=== PATIENT | female | born 1960 | race Caucasian/White ===

== ENCOUNTER 2016-11-25 08:07 | Emergency (ER) | payer MEDICARE, BC ==
--- OUTSIDE RECORDS SUMMARY | 2016-11-25 08:10 | XMS | Clinical Summary ---
:1960 Author Organization [facility] Address [address] [place] [address] Phone Care Team Providers Name Role Phone Dada Lai Primary Care Provider tel Allergies Active Allergy Reactions Severity Noted Date Comments Pfjddkso-Zqjzraadcb-Eqjhhqao High 03/31/2016 ne Meperidine 03/27/2016 Doxycycline GI Intolerance 03/27/2016 Nalbuphine 03/27/2016 Other 03/27/2016 Per pt, she has severe reaction to throat numbing spray Promethazine GI Intolerance 03/27/2016 Butorphanol Tartrate 03/27/2016 Aminophylline Rash Low 03/27/2016 Cefixime Rash Low 03/27/2016 Theophylline Rash Low 03/27/2016 Current Medications Prescription Sig. Disp. Refills Start Date End Date Status EPIPEN 2-JESUS 0.3 mg/0.3 03/13/2016 Active mL auto-injector estradiol (ESTRACE) 2 MG TAKE ONE (1) 3 02/27/2016 Active tablet TABLET(S) BY MOUTH ONCE A DAY. fluconazole (DIFLUCAN) TAKE ONE (1) 2 03/12/2016 Active 150 MG tablet TABLET(S) BY MOUTH WEEKLY. PERFOROMIST 20 mcg/2 mL 03/14/2016 Active nebulizer solution ANUCORT-HC 25 mg 03/13/2016 Active suppository predniSONE (DELTASONE) 5 01/19/2016 Active mg tablet budesonide (PULMICORT) Take 0.5 mg by Active 0.5 mg/2 mL nebulizer nebulization once solution daily. amoxicillin (AMOXIL) 500 Take 500 mg by Active MG capsule mouth as needed. mycophenolate (CELLCEPT) Take by mouth 2 Active 500 mg tablet (two) times a day. rosuvastatin (CRESTOR) 20 Take 20 mg by mouth Active MG tablet daily. fluticasone-vilanterol Inhale 1 Active (BREO ELLIPTA) 100-25 inhalations daily. mcg/dose blister with device powder for inhalation furosemide (LASIX) 20 mg Take 20 mg by mouth Active tablet 2 (two) times a day. spironolactone Take 25 mg by mouth Active (ALDACTONE) 25 MG tablet daily. nitroglycerin (NITROSTAT) Place 0.4 mg under Active 0.4 MG SL tablet the tongue every 5 (five) minutes as needed for chest pain. hydrocortisone Insert into the Active (ANUSOL-HC) 2.5 % rectal rectum 2 (two) cream times a day. azithromycin (ZITHROMAX) Take 250 mg by Active 250 MG tablet mouth daily. Take 2 tablets the first day, then 1 tablet daily for 4 days. ibandronate (BONIVA) 150 Take 150 mg by Active mg tablet mouth every 30 (thirty) days. Take in AM with glass of water prior to food, don't lie down for 30 minutes. levalbuterol (XOPENEX) Take 1 ampule by Active 1.25 mg/0.5 mL nebulizer nebulization every solution 4 (four) hours as needed for wheezing. coenzyme Q10 (CO Q-10) Take 300 mg by Active 100 mg capsule mouth daily. ondansetron (ZOFRAN) 8 MG Take 8 mg by mouth Active tablet every 8 (eight) hours as needed for nausea or vomiting. methylPREDNISolone sodium Infuse 125 mg into Active succinate (SOLU-Medrol, a venous catheter PF,) 125 mg/2 mL recon once. soln albuterol (PROAIR Inhale 2 puffs Active HFA,PROVENTIL every 6 (six) hours HFA,VENTOLIN HFA) 90 as needed for mcg/actuation inhaler wheezing. mometasone (NASONEX) 50 2 sprays into each Active mcg/actuation nasal spray nostril daily. potassium chloride Take 8 mEq by mouth Active (KLOR-CON 8) 8 MEQ CR 2 (two) times a tablet day. mupirocin (BACTROBAN) 2 % into each nostril 2 Active nasal ointment (two) times a day. Use one-half of tube in each nostril twice daily for five (5) days. After application, press sides of nose together and gently massage. butenafine (MENTAX) 1 % Apply topically 2 Active cream (two) times a day. aspirin (ECOTRIN) 81 MG Take 81 mg by mouth Active enteric coated tablet daily. albuterol sulfate Take 2.5 mg by Active (PROVENTIL) 2.5 mg/0.5 mL nebulization 3 solution for nebulization (three) times a day. cholecalciferol, vitamin Take by mouth. Active D3, (VITAMIN D3) 5,000 unit tablet MECOBAL/LEVOMEFOLAT CA/B6 Take by mouth. Active PHOS (METANX ORAL) morPHINE (MS CONTIN) 15 Take 15 mg by mouth Active MG 12 hr tablet 2 (two) times a day. gabapentin (NEURONTIN) Take 300 mg by Active 300 mg capsule mouth 3 (three) times a day. lidocaine (XYLOCAINE) 5 % Apply topically as Active ointment needed for mild pain. dexlansoprazole Take 60 mg by mouth Active (DEXILANT) 60 mg capsule daily. pantoprazole (PROTONIX) Take 40 mg by mouth Active 40 MG EC tablet daily. hydromorPHONE (DILAUDID) Take 4 mg by mouth Active 4 MG tablet every 4 (four) hours as needed for moderate pain. hydroxychloroquine Take by mouth Active (PLAQUENIL) 200 mg tablet daily. albuterol (ACCUNEB) 2.5 10/23/2016 Active mg /3 mL (0.083 %) nebulizer solution fluticasone (CUTIVATE) 10/24/2016 Active 0.05 % cream BREO ELLIPTA 200-25 10/23/2016 Active mcg/dose blister with device powder for inhalation ULTRA THIN LANCETS 30 09/29/2016 Active gauge misc levalbuterol (XOPENEX) 09/25/2016 Active 1.25 mg/3 mL nebulizer solution AMITIZA 24 mcg capsule 10/24/2016 Active methylPREDNISolone TAKE 6 TABLETS ON 0 10/23/2016 Active (MEDROL DOSEPAK) 4 mg DAY 1 DIRECTED tablet ON PACKAGE AND DECREASE BY 1 TAB EACH DAY FOR A TOTAL OF 6 DAYS mupirocin (BACTROBAN) 2 % 10/23/2016 Active ointment nxxgoeki-kciuohapag-subrt 10/23/2016 Active yxin (POLYSPORIN) ophthalmic ointment orphenadrine (NORFLEX) 10/23/2016 Active 100 mg 12 hr tablet potassium chloride 09/24/2016 Active (MICRO-K) 8 mEq CR capsule terconazole (TERAZOL 3) 10/28/2016 Active 0.8 % vaginal cream FORTEO 20 mcg/dose - 600 10/31/2016 Active mcg/2.4 mL injection valACYclovir (VALTREX) TAKE ONE (1) 6 09/24/2016 Active 500 MG tablet TABLET(S) BY MOUTH ONCE A DAY. Active Problems No known active problems Encounters Date Type Specialty Care Team Description 11/20/2016 Office Visit Orthopedic Surgery Kota Louie DDD ( degenerative Darinyessica Sneed, disc disease), PA-C lumbar (Primary Juan Manuel Benjamin MD Dx);DDD (degenerative disc disease), cervical;Cervical pain;Chronic low back pain without sciatica, unspecified back pain laterality 09/09/2016 Hospital Encounter Radiology Migue Harmon respiratory MD Danny failure with hypoxia 09/09/2016 Transcribe Orders Migue Guadalupe Bronchospasm;Polymyo MD Danny sitis 09/02/2016 Transcribe Orders Migue Guadalupe Chronic respiratory MD Danny failure with hypoxia (Primary Dx) from Last 3 Months Family History Medical History Relation Name Comments Diabetes Brother Hypertension Brother Heart disease Father Diabetes Mother Heart disease Mother Stroke Mother Sudden Mother Hypertension Sister Hypertension Sister Stroke Sister Mitral valve prolapse Sister Mitral valve replacement Sudden Sister Relation Name Status Comments Brother Father Mother Sister Sister Sister Social History Tobacco Use Types Packs/Day Years Used Date Never Smoker Smokeless Tobacco: Never Used Alcohol Use Drinks/Week oz/Week Comments No Sex Assigned at Date Recorded Not on file Last Filed Vital Signs Vital Sign Reading Time Taken Blood Pressure 136/72 06/24/2016 10:29 AM CDT Pulse 85 06/24/2016 10:29 AM CDT Temperature - - Respiratory Rate - - Oxygen Saturation 98% 06/07/2016 1:17 PM CDT Inhaled Oxygen Concentration - - Weight 99.8 kg (220 lb) 06/07/2016 1:17 PM CDT Height 162.6 cm (5' 4") 06/07/2016 1:17 PM CDT Body Mass Index 37.76 06/07/2016 1:17 PM CDT Plan of Treatment Date Type Specialty Care Team Description 12/20/2016 Office Visit Cardiology Kiersten Castellon MD [address] [facility] [address] [place] [address] Health Maintenance Due Date Last Done Comments PAP SMEAR 1981 COLONOSCOPY 2010 MAMMOGRAM 2010 INFLUENZA VACCINE 10/01/[address] Chest Wo Contrast (09/09/2016 11:21 AM) Specimen Performing Laboratory [facility] [address] [place] [address] Narrative EXAMINATION: CT CHEST WO CONTRAST CLINICAL HISTORY: J96.11 Chronic respiratory failure with hypoxia, CHRONIC RESPRATORY FAILURE WITH HYPOXIA TECHNIQUE: Multiple axial images of the chest were obtained without intravenous contrast. The lack of intravenous contrast reduces the sensitivity of detecting solid organ disease and evaluating vasculature. Sagittal and coronal computerized reformatted images were also obtained. CT imaging was performed with iterative reconstruction techniques and/or automated exposure control to reduce radiation dose. COMPARISON: Chest CT 12/08/2015 IMPRESSION: 1.The 13 mm irregular nodular area in the inferior lingula is stable, again most likely scarring, and continued imaging follow-up to ensure long-term (at least 2 years) stability is recommended. Lungs are otherwise clear. 2.There is no pleural or pericardial effusion. 3.There is no thoracic lymphadenopathy. 4.Heart size is normal. 5.Imaged upper abdomen is unremarkable. 6.There is no significant skeletal abnormality. [id number] Procedure Note Hm Interface, Radiology Results Incoming - 09/09/2016 11:43 AM CDT EXAMINATION: CT CHEST WO CONTRAST CLINICAL HISTORY: J96.11 Chronic respiratory failure with hypoxia, CHRONIC RESPRATORYFAILURE WITH HYPOXIA TECHNIQUE: Multiple axial images of the chest were obtained without intravenouscontrast. The lack of intravenous contrast reduces the sensitivity ofdetecting solid organ disease and evaluating vasculature. Sagittal and coronal computerized reformatted images were also obtained. CT imaging was performed with iterative reconstruction techniques and/ orautomated exposure control to reduce radiation dose. COMPARISON: Chest CT 12/08/2015 IMPRESSION: 1. The 13 mm irregular nodular area in the inferior lingula is stable,again most likely scarring, and continued imaging follow-up to ensurelong-term (at least 2 years) stability is recommended. Lungs are otherwiseclear. 2. There is no pleural or pericardial effusion. 3. There is no thoracic lymphadenopathy. 4. Heart size is normal. 5. Imaged upper abdomen is unremarkable. 6. There is no significant skeletal abnormality. [id number] from Last 3 Months Insurance Payer Benefit Plan / Group Subscriber ID Type Phone Address MEDICARE MEDICARE PART A AND B [id number] Medicare [place], [place] BCBS BCBS CHOICE PPO/FEDERAL EMPL PPO [id number] PPO Home: [id number] [phone] [id number]
--- NOTE | 2016-11-25 08:30 | RAD ---
CHEST 1 VIEW: Date: 11/25/16 HISTORY: Dyspnea. COMPARISON: 11/02/15. FINDINGS: Cardiac silhouette is magnified by projection. Pulmonary vasculature is unremarkable. Mediastinum is midline. There is no lobar consolidation or evidence of pneumothorax. pvc monitor leads overlie the chest. IMPRESSION: No active cardiopulmonary abnormalities are demonstrated. POS: [facility]
[2016-11-25 08:49] LABS: #Basophils 0.1 thou/uL (0.0-0.2); #Eosinphils 0.2 thou/uL (0.0-0.7); #Lymphocytes 2.8 thou/uL (1.20-3.40); #Monocytes 0.4 thou/uL (0.11-0.59); #Neutrophils 3.5 thou/uL (1.40-6.50); %Basophils 0.8 % (0.0-1.0); %Eosinophils 2.3 % (0.0-10.0); %Lymphocytes 40.2 % (21.0-51.0); %Monocytes 6.3 % (0.0-10.0); Hematocrit 45.1 % (36.0-47.0); Mean Platelet Volume 7.1 fL (7.4-10.4); Red Blood Cell (RBC) Count 4.96 mill/uL (4.20-5.40); White Blood Cell (WBC) Count 6.9 thou/uL (4.8-10.8)
[2016-11-25 09:14] LABS: ALT (SGPT) 18 U/L (8-55); AST (SGOT) 20 U/L (5-34); Alkaline Phosphatase 76 U/L (40-150); Anion Gap 16 mmol/L (10-20); BUN (Urea Nitrogen) 17 mg/dL (9.8-20.1); Bilirubin, Total 0.4 mg/dL (0.2-1.2); Calc. Creatinine Clearance 0 mL/min (70-130); Calcium 9.6 mg/dL (7.8-10.44); Carbon Dioxide 24 mmol/L (22-29); Chloride 105 mmol/L (98-107); Estimated GFR-MDRD 66; Globulin 3.3 g/dL (2.4-3.5); Protein, Total 7.3 g/dL (6.0-8.3)
[2016-11-25 09:18] LABS: Troponin I Less than 0.010 ng/mL (< 0.028)
[2016-11-25] MEDS ORDERED: Water For Inject, Bacteriostat 30 ML ONE (09:40)
[2016-11-25] MEDS ORDERED: methylPREDNISolone Sod Succ/PF 125 MG/2 ML VIAL ONE (09:40)
== END 2016-11-25 11:43 | disposition home or self-care (01) ==
LOC: ERS 08:07
DX: J44.1 Chronic obstructive pulmonary disease with (acute) exacerbation (principal); J40 Bronchitis, not specified as acute or chronic; I34.1 Nonrheumatic mitral (valve) prolapse; M06.9 Rheumatoid arthritis, unspecified; K21.9 Gastro-esophageal reflux disease without esophagitis; G47.31 Primary central sleep apnea; G89.4 Chronic pain syndrome; I50.9 Heart failure, unspecified
CPT/HCPCS: 36415; 71010; 80053; 82553; 83880; 84484; 85025; 85379; 93005; 94640; 94760; 96374; J2930; J7620

== ENCOUNTER 2017-03-04 14:52 | Inpatient (IN) | payer MEDICARE, BC ==
[2017-03-04] MEDS ORDERED: Acetaminophen 500 MG TAB ONE (19:51)
[2017-03-04 20:02] LABS: #Basophils 0.1 thou/uL (0.0-0.2); #Lymphocytes 0.9 thou/uL (1.20-3.40); #Monocytes 0.7 thou/uL (0.11-0.59); #Neutrophils 3.2 thou/uL (1.40-6.50); %Basophils 1.4 % (0.0-1.0); %Eosinophils 0.5 % (0.0-10.0); %Lymphocytes 18.9 % (21.0-51.0); %Monocytes 13.2 % (0.0-10.0); Hemoglobin 14.6 g/dL (12.0-16.0); Mean Corpuscular HGB CONC 32.7 g/dL (32.0-36.0); Mean Corpuscular Hemoglobin 30.3 pg (27.0-31.0); Mean Corpuscular Volume 92.6 fl (81.0-99.0); Mean Platelet Volume 7.8 fL (7.4-10.4); Platelet Count 197 thou/uL (130-400); RBC Distribution Width 13.7 % (11.5-14.5); Red Blood Cell (RBC) Count 4.83 mill/uL (4.20-5.40); White Blood Cell (WBC) Count 4.9 thou/uL (4.8-10.8)
[2017-03-04 20:23] LABS: ALT (SGPT) 24 U/L (8-55); AST (SGOT) 26 U/L (5-34); Albumin 4.4 g/dL (3.5-5.0); Alkaline Phosphatase 78 U/L (40-150); Anion Gap 16 mmol/L (10-20); BUN (Urea Nitrogen) 15 mg/dL (9.8-20.1); Bilirubin, Total 0.5 mg/dL (0.2-1.2); Calc. Creatinine Clearance 0 mL/min (70-130); Calcium 9.7 mg/dL (7.8-10.44); Carbon Dioxide 21 mmol/L (22-29); Chloride 107 mmol/L (98-107); Estimated GFR-MDRD 72; Globulin 3.4 g/dL (2.4-3.5); Glucose 82 mg/dL (70-105); Potassium 3.7 mmol/L (3.5-5.1); Protein, Total 7.8 g/dL (6.0-8.3); Sodium 140 mmol/L (136-145)
--- NOTE | 2017-03-04 20:46 | RAD ---
EXAM: CHEST TWO VIEWS 03/04/17 HISTORY: Cough. Flu-like symptoms. COMPARISON: 10/11/16. FINDINGS: Lung volumes are diminished. No consolidation or mass. No pneumothorax or osseous abnormalities. Card iac silhouette is within normal limits. IMPRESSION: Diminished lung volumes, likely due to a poor inspiratory effort. No acute cardiopulmonary process. POS: [facility]
[2017-03-04] MEDS ORDERED: Azithromycin 500 MG in Sodium Chloride 0.9% 250 ML 250 ML IVPB SCH (22:00)
[2017-03-04] MEDS ORDERED: Ondansetron ODT 4 MG TAB SL PRN (23:35)
[2017-03-04] MEDS: Sodium Chloride 0.9% 1,000 ML IV SCH (23:35)
[2017-03-04] MEDS ORDERED: Ondansetron HCl/PF 4 MG/2 ML Vial IVP PRN (23:35)
[2017-03-04] MEDS ORDERED: Acetaminophen 325 MG TAB PO PRN (23:35)
[2017-03-04 23:58] VITALS: BMI 38.0
[2017-03-05] MEDS: Sodium Chloride 0.9% 1,000 ML IV SCH (06:28)
[2017-03-05] MEDS ORDERED: Budesonide 0.5 MG/2 ML NEB NEB SCH (06:30)
[2017-03-05] MEDS ORDERED: Morphine IR 10 MG/5 ML UDCUP PO PRN ×2 (07:19→11:30)
--- NOTE | 2017-03-05 07:21 | HP ---
DATE OF ADMISSION: 03/04/2017 CHIEF COMPLAINT: Flu-like syndrome. HISTORY OF PRESENT ILLNESS: The patient is a 56-year-old female with longstanding restrictive lung d isease. This slowly progressed over many years. Over the last 3 days she has had increasing cough, congestion, fever, chills and fatigue. She came to the emergency room on the day of admission for fu rther evaluation. There she was noted to have diminished breath sounds in all lung montilla (this is h er baseline). However, due to her respiratory difficulties in general with the added congestion and fatigue it is felt that due to her immunocompromised state of being on steroid therapy for her lupus she needed hospitalization for further evaluation and serial reassessment. There has been no nausea, vomiting, diarrhea. She denies chest pain, numbness, tingling. Her symptoms are generalized, moder ate in severity, but have been worsening, associated with cough. On evaluation, she is coughing cons tantly. PAST MEDICAL HISTORY: As mentioned above, long history of restrictive lung disease which has slowly progressed. 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 She has chronic pain due to bilateral avascular necrosis of the hips also due to long-term steroid therapy. She has chronic back pain with MRI proven neuronal comp romise due to bulging disk and foraminal stenosis. She has mild mitral valve prolapse, collagen vasc ular disease - lupus, rheumatoid arthritis, pyomyositis, gastroesophageal reflux disease, polyps, ova abbie cyst, endometriosis, prior hysterectomy, carpal tunnel syndrome, osteoporosis, torn rotator cuff in her shoulders. Dyslipidemia. Medication induced constipation/irritable bowel syndrome. PAST SURGICAL HISTORY: Hysterectomy, appendectomy, laparotomy x2, tonsillectomy. PSYCHIATRIC HISTORY: Significant for anxiety disorder. SOCIAL HISTORY: She is , denies drug and alcohol use. She lives at home with her . FAMILY HISTORY: Noncontributory. ALLERGIES: AMINOPHYLLINE, CEFEPIME, DEMEROL, DOXYCYCLINE, NUBAIN, PROMETHAZINE, STADOL. CURRENT MEDICATIONS: Prednisone 20 mg, she takes 4-8 mg daily, Forteo 20 mcg daily, Xopenex daily, C ellCept 250 mg b.i.d., Dexilant 60 mg daily, spironolactone 25 mg daily, many over the counter medici latha p.r.n. such, Dulcolax, Anusol-HC, Nasonex, Mentax, she takes morphine 15 mg every 8 hours p.r.n. back and hip pain. She takes Amitiza 8 mg p.r.n. irritable bowel syndrome, she takes Perforomist neb treatments 20 mcg b.i.d., Pulmicort 0.5 mg b.i.d., Estradiol 2 mg daily, Flexeril 10 mg p.r.n. muscl e spasms in her back, Diflucan p.r.n. yeast infection, Lasix 20 mg b.i.d., Crestor 20 mg at bedtime. REVIEW OF SYSTEMS: HEENT: Head congestion, drainage and discharge. NECK: Denies pain. Normal range of motion. No masses. CHEST: With chronic shortness of breath and cough, nonproductive. HEART: Denies chest pain and palpitations at this time. ABDOMEN: Soft, denies nausea, vomiting, diarrhea. : Denies blood in urine or stool or painful urination. GI: Admits to chronic constipation usually due to pain medications. Denies blood in stool. MUSCULOSKELETAL: Diffuse chronic aches and pains in all major joints due to avascular necrosis in th e major joints with limited range of motion. SKIN: No acute rashes or lesions. NEUROLOGIC: No trouble with mentation, focus, dizziness or headache. PHYSICAL EXAMINATION: VITAL SIGNS: On admission, blood pressure is 104/54, pulse is 96, temperature 99.9, respirations 24. GENERAL: This is a morbidly obese female, alert, oriented, and cooperative. HEENT: Normocephalic and atraumatic. Pupils equal, round, and reactive to light. Extraocular muscl es are intact. TMs, nares, pharynx are clear. No white patches such as thrush. NECK: Supple, trachea midline, no mass. CHEST: With diminished breath sounds in all montilla (baseline findings for this patient). No rales, rhonchi, occasional wheezes diffusely. HEART: Regular rate and rhythm, tachycardic. ABDOMEN: Soft, nontender, without organomegaly. /BREAST: Exams deferred. ABDOMEN: Soft, nontender, without hepatosplenomegaly. EXTREMITIES: Without clubbing, cyanosis, or edema. Limited range of motion of all extremities due t o core avascular necrosis at the shoulders and hips. SKIN: Without acute rashes or lesions. Warm to touch. NEUROLOGIC: Cranial nerves are intact. Unable to test gait and cerebellar function at this time. S ensory exam is generally intact. Mental status is clear. LABORATORY DATA: Lab work on admission showed WBC is 4.9, hemoglobin 14.6, hematocrit 44.7 with plat elets at 197. Sodium 140, potassium 3.7, chloride 107, CO2 21, BUN 15, creatinine 2.82 with a glucos e of 82. Lactic acid 1.9. Liver functions normal. Chest x-ray shows no acute disease. ASSESSMENT: 1. Viral syndrome in an immunocompromised individual. 2. Immunocompromised due to chronic steroid therapy for lupus and polymyositis. 3. Chronic pain syndromes due to avascular necrosis and diffuse major joint deterioration. 4. "Shrinking lung disease". PLAN: Scheduled Tylenol, scheduled DuoNeb treatments, maintain her low level prednisone 10 mg daily use, maintain low level morphine p.r.n. use and serially reevaluate the patient. Early possible disc harge once her respiratory difficulties ease off.
[2017-03-05 07:34] LABS: #Eosinphils 0.1 thou/uL (0.0-0.7); #Lymphocytes 0.7 thou/uL (1.20-3.40); #Monocytes 0.6 thou/uL (0.11-0.59); #Neutrophils 2.6 thou/uL (1.40-6.50); %Basophils 0.9 % (0.0-1.0); %Eosinophils 1.9 % (0.0-10.0); %Lymphocytes 16.7 % (21.0-51.0); %Monocytes 14.6 % (0.0-10.0); %Neutrophils 65.8 % (42.0-75.0); Hemoglobin 12.2 g/dL (12.0-16.0); Mean Corpuscular HGB CONC 32.7 g/dL (32.0-36.0); Mean Corpuscular Hemoglobin 30.2 pg (27.0-31.0); Mean Corpuscular Volume 92.5 fl (81.0-99.0); Mean Platelet Volume 7.5 fL (7.4-10.4); Platelet Count 159 thou/uL (130-400); RBC Distribution Width 13.6 % (11.5-14.5); Red Blood Cell (RBC) Count 4.04 mill/uL (4.20-5.40)
[2017-03-05 07:41] LABS: Hemoglobin A1c 5.1 % (4.0-6.0)
[2017-03-05 07:43] LABS: Anion Gap 13 mmol/L (10-20); BUN (Urea Nitrogen) 12 mg/dL (9.8-20.1); Calc. Creatinine Clearance 133 mL/min (70-130); Calcium 8.9 mg/dL (7.8-10.44); Carbon Dioxide 20 mmol/L (22-29); Chloride 109 mmol/L (98-107); Estimated GFR-MDRD 80; Glucose 117 mg/dL (70-105); Potassium 3.8 mmol/L (3.5-5.1); Sodium 138 mmol/L (136-145)
[2017-03-05] MEDS ORDERED: Spironolactone 25 MG TAB PO SCH (08:00)
[2017-03-05] MEDS ORDERED: Mycophenolate 250 MG CAP PO SCH (09:00)
[2017-03-05] MEDS ORDERED: Acetaminophen 325 MG TAB PO SCH (09:00)
[2017-03-05] MEDS ORDERED: predniSONE 5 MG TAB PO SCH (09:00)
--- NOTE | 2017-03-05 13:03 | PQF ---
CLINICAL DOCUMENTATION IMPROVEMENT CLARIFICATION FORM: ICD-10 Updated PLEASE DO AN ADDENDUM TO THE PROGRESS NOTE WITH ANY DOCUMENTATION UPDATES OR ADDITIONS AND CARRY THROUGH TO DC SUMMARY. THANK YOU. DATE: 03/05/17 ATTN: DR. HODGE Please exercise your independent, professional judgment in responding to the clarification form. Clinical indicators are provided on the bottom of this form for your review Please check appropriate box(s): [ ] Acute Respiratory Failure: [ ] with Hypoxia[ ] with Hypercapnia [x ] Acute On Chronic Respiratory Failure: [ x ] with Hypoxia [ ] with Hypercapnia [ ] Acute Respiratory Failure due to: (etiology) [ ] Acute Respiratory Insufficiency following (if applicable): [ ] trauma [ ] surgery [ ] Chronic Respiratory Failure only [ ] with Hypoxia [ ] with Hypercapnia [ ] Hypoxia [ x ] Other diagnosis "Shrinking Lung syndrome" [ ] Unable to determine In addition, please specify: Present on Admission (POA): [ ] Yes [ ] No [ ] Unable to determine For continuity of documentation, please document condition throughout progress notes and discharge summary. Thank You. CLINICAL INDICATORS - SIGNS / SYMPTOMS / LABS ER NOTE: "ON HOME O2 @ 3-4 LPM" "WHEEZING PRESENT TO BILATERAL UPPER LOBES, TO BILATERAL LOWER LOBES, BREATH SOUNDS DIMINISHED TO BILATERAL UPPER LOBES, TO BILATERAL LOWER LOBES." "ON MY EXAM, VERY TIGHT BILATERAL BREATH SOUNDS WITH EXPIRATORY WHEEZE AND PROLONGED EXPIRATORY PHASE" RR24 RISKS: "SHRINKING LUNG SYNDROME" IMMUNOCOMPROMISED STATE TREATMENT: CARLEEN (03/04-PRESENT) PULMICORT PREDNISONE SUPPLEMENTAL OXYGEN @ 4L [employer] Win[employer](This form is maintained as a part of the permanent medical record) 2014 [employer]. All Rights Reserved SANDRA [email or web address] Office: [phone] [facility]
[2017-03-05] MEDS: Acetaminophen 325 MG TAB PO SCH ×3 (14:05→19:49)
[2017-03-05] MEDS: Budesonide 0.5 MG/2 ML NEB NEB SCH (19:44)
[2017-03-05] MEDS: Mycophenolate 250 MG CAP PO SCH ×2 (19:50→19:58)
[2017-03-06] MEDS: Acetaminophen 325 MG TAB PO SCH ×6 (00:47→20:04)
[2017-03-06] MEDS: Budesonide 0.5 MG/2 ML NEB NEB SCH ×2 (06:42→19:08)
[2017-03-06] MEDS: Spironolactone 25 MG TAB PO SCH (07:53)
[2017-03-06] MEDS: predniSONE 20 MG TAB PO SCH (07:53)
[2017-03-06] MEDS: Mycophenolate 250 MG CAP PO SCH ×2 (07:58→20:05)
--- NOTE | 2017-03-06 08:21 | PRG ---
DATE OF SERVICE: 03/06/2017 SUBJECTIVE: The patient had a good night. She is still short of breath. She is coughing up yellow and green sputum despite her chest x-ray being unremarkable. PHYSICAL EXAMINATION: GENERAL: Upon evaluation, she is awake, alert, and oriented. VITAL SIGNS: Her blood pressure is 113/70, temperature was 100.2. NECK: Supple with no increased JVP or carotid bruit. Carotid had good upstroke with no thyromegaly . COR: Regular rate and rhythm. CHEST: Scattered rhonchi. ABDOMEN: Soft, nontender, obese with normoactive bowel sounds. No bruit or organomegaly. EXTREMITIES: No edema or cyanosis. She had palpable pedal pulses. SKIN: There is no evidence of ulceration, lesion or rash. NEUROLOGIC: She is awake, alert, and oriented to person, place, and time. LABORATORY DATA: Her white blood cell is 4.0. Her H&H is normal. ASSESSMENT: 1. Bronchitis. 2. Restrictive lung disease. 3. Lupus, on steroids. 4. Multiple medical problems. PLAN: We will go ahead and start Rocephin and Zithromax secondary to coughing up yellow and green sp utum and running a fever. We will also follow up with a chest x-ray in the morning. We will also en courage her to get out of bed and sit in the chair. The patient verbalized understanding and all que stions answered to her satisfaction.
[2017-03-06] MEDS: cefTRIAXone\\ROCEPHIN 1 GM, Syringe 0.4 ML in Sterile Water 9.6 ML SLOW IVP SCH (10:53)
[2017-03-06] MEDS: Azithromycin 500 MG in Sodium Chloride 0.9% 250 ML 250 ML IVPB SCH (10:53)
[2017-03-06] MEDS: Levalbuterol HCl 1.25 MG/0.5 ML NEB NEB SCH (19:05)
[2017-03-06] MEDS ORDERED: Levalbuterol HCl 1.25 MG/0.5 ML NEB NEB SCH (22:00)
[2017-03-06] MEDS ORDERED: Fluticasone Propionate Nasal Spray 16 gm Bottle NASAL SCH (23:15)
[2017-03-07] MEDS: Acetaminophen 325 MG TAB PO SCH ×7 (00:02→20:21)
[2017-03-07] MEDS: Budesonide 0.5 MG/2 ML NEB NEB SCH ×2 (06:48→19:56)
[2017-03-07] MEDS: Levalbuterol HCl 1.25 MG/0.5 ML NEB NEB SCH ×3 (06:48→19:57)
[2017-03-07] MEDS ORDERED: Sodium Chloride For Inhalation 0.9% 3 ML NEB NEB PRN (06:56)
[2017-03-07] MEDS: predniSONE 20 MG TAB PO SCH (07:46)
[2017-03-07] MEDS: Spironolactone 25 MG TAB PO SCH (07:46)
[2017-03-07] MEDS: Mycophenolate 250 MG CAP PO SCH ×2 (07:47→20:22)
--- NOTE | 2017-03-07 08:18 | PRG ---
DATE OF SERVICE: 03/07/2017 HISTORY OF PRESENT ILLNESS: The patient had a good night. She is still coughing up yellow junk. PHYSICAL EXAMINATION: VITAL SIGNS: Her blood pressure is 113/60, pulse 80, respirations 22. She said she had a temperatur e of 101. However, her temperature documented is 99.2. Chest x-ray is pending. GENERAL: Upon evaluation, she is awake. She is alert and oriented. COR: Regular rate and rhythm. CHEST: A few rhonchi. ABDOMEN: Soft, nontender, obese with normoactive bowel sounds. No bruit or organomegaly. EXTREMITIES: No edema or cyanosis. She had palpable pedal pulses. SKIN: There is no evidence of ulceration, lesion, or rash. NEUROLOGIC: She is awake, alert, and oriented to person, place, and time. ASSESSMENT: 1. Upper respiratory infection. 2. Restrictive lung disease. 3. Lupus. 4. Multiple medical problems. PLAN: The patient will be continued as is. She wants to go home already, she thinks she will get be tter faster at home. If her chest x-ray looks okay and if she is afebrile tomorrow, we will look at possibly sending her home. The patient verbalized understanding and all questions answered to her sa tisfaction.
--- NOTE | 2017-03-07 08:28 | RAD ---
RADIOGRAPH CHEST 1 VIEW: Date: 03-07-17 Time: 7:17 a.m. HISTORY: 56-year-old female with dyspnea. COMPARISON: 03-04-17, 11-25-16 FINDINGS: Comparison cannot be made with the 03-04-17 study because the lungs are very hypoinflated in that study . On the current study, there is a new faint infiltrate-like density in the left mid to lower lung zone , new since the 11-25-16 study. The right lung is relatively clear. No cardiomegaly. No pneumothorax. Lateral costophrenic angles are sharp. IMPRESSION: 1. Possible developing small, faint infiltrate in the left lung. 2. Follow up is recommended. SEB POS: [facility]
[2017-03-07] MEDS: Azithromycin 500 MG in Sodium Chloride 0.9% 250 ML 250 ML IVPB SCH (09:32)
[2017-03-07] MEDS: Fluticasone Propionate Nasal Spray 16 gm Bottle NASAL SCH (09:33)
[2017-03-07] MEDS: cefTRIAXone\\ROCEPHIN 1 GM, Syringe 0.4 ML in Sterile Water 9.6 ML SLOW IVP SCH (11:00)
[2017-03-08] MEDS: Acetaminophen 325 MG TAB PO SCH ×3 (01:50→08:42)
[2017-03-08 07:35] VITALS: BP 108/71; TEMP 98.8
[2017-03-08] MEDS: Spironolactone 25 MG TAB PO SCH (08:41)
[2017-03-08] MEDS: predniSONE 20 MG TAB PO SCH (08:42)
[2017-03-08] MEDS: Fluticasone Propionate Nasal Spray 16 gm Bottle NASAL SCH (08:42)
[2017-03-08] MEDS: Mycophenolate 250 MG CAP PO SCH (08:43)
--- NOTE | 2017-03-09 00:16 | DIS ---
This is MATTHEW Braga-Sheng, dictating for Dr. Lai Garland. DATE OF ADMISSION: 03/04/2017 DATE OF DISCHARGE: 03/08/2017 FINAL DIAGNOSES: 1. Upper respiratory infection. 2. Restrictive lung disease. 3. Lupus. 4. Anxiety. 5. Multiple medical problems. COMPLICATIONS: None. PROCEDURES: None. CONSULTANTS: None. HOSPITAL COURSE: This is a pleasant female who presents to the hospital with cough, fever, and chill s. She did have a flu that was negative. She had a chest x-ray that was normal. She was started on IV antibiotics. She did run a spike fever of 101. Her CMP was normal, showing a normal BUN of 13 a nd creatinine of 0.75. Her liver enzymes were normal. Her hemoglobin and hematocrit was 12.2 and 37 .3. Her platelet count was 159. Her white blood cell was 4. The patient had a follow up chest x-ra ys and she spiked a temperature and this did show possibly faint infiltrate; however, the patient fel t much better. She was on her oxygen; however, she does have oxygen at home. She had no fever. Her white blood cell count was normal. She wanted to go home. Therefore, she was discharged home on in stable condition. DISCHARGE MEDICATIONS: 1. Z-Favio, take as directed. 2. Albuterol p.r.n. 3. Ventolin HFA 1-2 puffs every 4 hours. 4. Aspirin 81 mg every day. 5. MinTAC apply topically for itching p.r.n. 6. Pulmicort b.i.d. 7. Vitamin D3 every day. 8. Dexilant 60 mg every day. 9. Benadryl p.r.n. 10. EpiPen Favio. 11. Estrace 2 mg every day. 12. Diflucan 150 mg daily. 13. Flonase nasal spray 1 spray each nostril daily. 14. Perforomist 20 mcg inhalation b.i.d. 15. Furosemide 20-40 p.r.n. for edema. 16. Hydrocortisone acetate rectal p.r.n. 17. Dilaudid 4 mg every 4-6 hours p.r.n. pain. 18. Boniva 150 mg every month. 19. Xopenex every 8 hours p.r.n. 20. Amitiza 16 mg every day. 21. CellCept 1000 mg b.i.d. 22. Nitro 0.4 sublingual p.r.n. chest pain. 23. Zofran 8 mg p.o. q.4-6 hours p.r.n. nausea and vomiting. 24. Protonix 40 mg every day. 25. Prednisone 10 mg every day. 26. Crestor 20 mg every day. 27. Aldactone 25 mg every day. 28. Forteo 20 mcg subcu as directed. 29. CoQ10 every day. FOLLOWUP: She will follow up with Dr. Garland in 1 week or prior to that if she has any complications. DIET: Her diet will be a regular diet. ACTIVITIES: As tolerated. The patient verbalized understanding. Total time spent with this patient, seeing the patient and reviewing the chart was 30 minutes.
== END 2017-03-08 10:25 | disposition home or self-care (01) | DRG 865 ==
LOC: ERS 14:52 → 3SE 21:27 → UNDODISIN 03-05 10:17 → T4-A 03-05 18:27
PROVIDERS: ADMIT Specialist; ATTEND Specialist
DX: B34.9 Viral infection, unspecified (principal); J96.21 Acute and chronic respiratory failure with hypoxia; M32.9 Systemic lupus erythematosus, unspecified; M33.20 Polymyositis, organ involvement unspecified; E66.01 Morbid (severe) obesity due to excess calories; I08.1 Rheumatic disorders of both mitral and tricuspid valves; M87.188 Osteonecrosis due to drugs, other site; J06.9 Acute upper respiratory infection, unspecified; J45.909 Unspecified asthma, uncomplicated; Z79.52 Long term (current) use of systemic steroids; T38.0X5A Adverse effect of glucocorticoids and synthetic analogues, initial encounter; G89.29 Other chronic pain; M54.9 Dorsalgia, unspecified; M06.9 Rheumatoid arthritis, unspecified; K21.9 Gastro-esophageal reflux disease without esophagitis; E78.5 Hyperlipidemia, unspecified; G56.00 Carpal tunnel syndrome, unspecified upper limb; K59.03 Drug induced constipation; K58.1 Irritable bowel syndrome with constipation; F41.9 Anxiety disorder, unspecified; Z88.1 Allergy status to other antibiotic agents; Z88.8 Allergy status to other drugs, medicaments and biological substances; Z79.899 Other long term (current) drug therapy; Z79.891 Long term (current) use of opiate analgesic; Z68.38 Body mass index [BMI] 38.0-38.9, adult; Z99.81 Dependence on supplemental oxygen; J98.4 Other disorders of lung; M48.02 Spinal stenosis, cervical region; M48.061 Spinal stenosis, lumbar region without neurogenic claudication
CPT/HCPCS: 36415; 36416; 71045; 71046; 80048; 80053; 83036; 83605; 85025; 87040; 87804; 94640; 96374; 96375; A4216; J0456; J0696; J7050; J7506; J7517; J7612; J7620; J7626

== ENCOUNTER 2017-03-11 13:32 | Outpatient (CLI) | payer MEDICARE, BC ==
--- NOTE | 2017-03-11 14:17 | RAD ---
PA AND LATERAL CHEST RADIOGRAPH: Date: 03-11-17 History: Pneumonia. Comparison: 03-07-17 FINDINGS: Previously noted patchy and interstitial densities in the left midlung zone are not visualized on the current study. The lungs are clear on today's examination. Cardiac silhouette and pulmonary vasculat ure are within normal limits. Lungs are clear. IMPRESSION: The patchy density in the left lung zone on the prior exam is less conspicuous on today's study. No f ocal consolidation or pleural fluid is seen bilaterally. POS: [facility]
== END 2017-03-11 13:33 | disposition home or self-care (01) ==
LOC: RAD 13:32
PROVIDERS: ATTEND Specialist
DX: R06.02 Shortness of breath (principal); R05 Cough; J98.4 Other disorders of lung
CPT/HCPCS: 71046

== ENCOUNTER 2017-04-04 10:52 | Outpatient (CLI) | payer MEDICARE, BC ==
[2017-04-04] MEDS ORDERED: Iopamidol 370 76% 100 ML VIAL ONE (13:18)
== END 2017-04-04 10:53 | disposition home or self-care (01) ==
LOC: BICCT 10:52
PROVIDERS: ATTEND Specialist
DX: R91.8 Other nonspecific abnormal finding of lung field (principal)
CPT/HCPCS: 71260

== ENCOUNTER 2017-10-29 13:43 | Outpatient (CLI) | payer MEDICARE, BC | END 2017-10-29 13:44 | disposition home or self-care (01) | LOC: BICRAD 13:43 | PROVIDERS: ATTEND Anesthesiology Pain Medicine | DX: S32.009A Unspecified fracture of unspecified lumbar vertebra, initial encounter for closed fracture (principal); S22.009A Unspecified fracture of unspecified thoracic vertebra, initial encounter for closed fracture | CPT/HCPCS: 72070; 72100 ==

== ENCOUNTER 2017-11-01 19:26 | Emergency (ER) | payer MEDICARE, BC ==
[~2017-11-01 19:26] MED LIST: ISOVUE-370 76%-LOCM 1 ML ONE
--- NOTE | 2017-11-01 20:16 | RAD ---
RADIOGRAPH CHEST 1 VIEW: 11/01/17 HISTORY: 57-year-old female with dyspnea. FINDINGS: There are no air space densities, pulmonary edema, pneumothorax, or cardiomegaly. The lateral costop hrenic angles are sharp. There is an electronic device which obscures a portion of the lateral aspect of the left upper lobe. IMPRESSION: No acute cardiopulmonary findings. bakari pereira POS: [facility]
[2017-11-01 20:21] LABS: #Basophils 0.1 thou/uL (0.0-0.2); #Eosinphils 0.1 thou/uL (0.0-0.7); #Lymphocytes 2.4 thou/uL (1.20-3.40); #Monocytes 0.5 thou/uL (0.11-0.59); #Neutrophils 3.9 thou/uL (1.40-6.50); %Basophils 0.9 % (0.0-1.0); %Eosinophils 1.6 % (0.0-10.0); %Lymphocytes 34.8 % (21.0-51.0); %Monocytes 6.5 % (0.0-10.0); %Neutrophils 56.3 % (42.0-75.0); Mean Corpuscular HGB CONC 34.5 g/dL (32.0-36.0); Mean Corpuscular Hemoglobin 31.2 pg (27.0-31.0); Mean Corpuscular Volume 90.4 fL (78.0-98.0); Mean Platelet Volume 7.7 fL (7.4-10.4); Platelet Count 222 thou/uL (130-400); RBC Distribution Width 13.4 % (11.5-14.5); Red Blood Cell (RBC) Count 4.49 mill/uL (4.20-5.40); White Blood Cell (WBC) Count 6.9 thou/uL (4.8-10.8)
[2017-11-01] MEDS ORDERED: methylPREDNISolone Sod Succ/PF 125 MG/2 ML VIAL ONE (20:36)
[2017-11-01 20:41] LABS: CKMB 2.1 ng/mL (0-6.6); Troponin I Less than 0.010 ng/mL (< 0.028)
[2017-11-01] MEDS ORDERED: Albuterol Sulfate 2.5 mg/0.5 ml Neb ONE (20:43)
[2017-11-01 20:54] LABS: Base Excess-Venous 1.7 mmol/L (0 (+/- 2.5)); Bicarbonate (HCO3v) 26.2 mmol/L (1.0-85.0); CO2 Tension (PvCO2) 39.9 mmHg (41.0-51.0); Calcium, Ionized 1.27 mmol/L (1.12-1.32); Hemoglobin - Calc 13.9 g/dL (12.0-18.0); O2 Tension (PvO2) 55.5 mmHg (35.0-45.0); Potassium 3.7 mmol/L (3.4-4.7); T. Carbon Dioxide 27.4 mmol/L (1.0-85.0); pH (Venous) 7.425 (7.35-7.45); vO2 Saturation-calc 89.2 % (94-98)
[2017-11-01 21:42] LABS: ALT (SGPT) 24 U/L (8-55); AST (SGOT) 26 U/L (5-34); Albumin 4.3 g/dL (3.5-5.0); Alkaline Phosphatase 94 U/L (40-150); Anion Gap 13 mmol/L (10-20); BUN (Urea Nitrogen) 13 mg/dL (9.8-20.1); Bilirubin, Total 0.4 mg/dL (0.2-1.2); Calc. Creatinine Clearance 0 mL/min (70-130); Carbon Dioxide 21 mmol/L (22-29); Chloride 110 mmol/L (98-107); Estimated GFR-MDRD 56; Globulin 3.2 g/dL (2.4-3.5); Glucose 121 mg/dL (70-105); Potassium 3.7 mmol/L (3.5-5.1); Protein, Total 7.5 g/dL (6.0-8.3); Sodium 140 mmol/L (136-145)
--- NOTE | 2017-11-01 22:57 | CT ---
CTA THORAX WITH CONTRAST: 11/01/17 at 10:28 p.m. (Computed Tomographic Angiography, chest(noncoronary) with contrast material, and image postprocessin g) (PE protocol) HISTORY: 57-year-old female with elevated D-dimer. TECHNIQUE: IV injection of iodinated contrast. Scan acquisition timing attempted to coincide with iodinated contrast bolus reaching maximal density in pulmonary arteries. 3D MIP reconstructions. FINDINGS: There is a large number of polypoid densities attached to the nondependent portion of the gastric wal l, protruding into the gastric lumen. The stomach is distended. There is no thoracic aortic aneurysm or dissection. No evidence of pulmonary thromboembolism. No pleural effusion or pneumothorax. No cons olidation or pulmonary edema. No mediastinal or hilar lymphadenopathy. Mild tracheomalacia. IMPRESSION: 1. No evidence of pulmonary thromboembolism. 2. Large number of gastric polyps. Recommend endoscopy. bakari[] POS: [facility]
== END 2017-11-02 00:32 | disposition home or self-care (01) ==
LOC: ERS 19:26
DX: J45.901 Unspecified asthma with (acute) exacerbation (principal); K31.7 Polyp of stomach and duodenum; I11.0 Hypertensive heart disease with heart failure; I50.9 Heart failure, unspecified; M32.9 Systemic lupus erythematosus, unspecified; M06.9 Rheumatoid arthritis, unspecified; K21.9 Gastro-esophageal reflux disease without esophagitis; G56.00 Carpal tunnel syndrome, unspecified upper limb; M81.0 Age-related osteoporosis without current pathological fracture; G47.30 Sleep apnea, unspecified; Z79.51 Long term (current) use of inhaled steroids; Z79.899 Other long term (current) drug therapy
CPT/HCPCS: 36415; 71045; 71275; 80053; 82330; 82435; 82553; 82803; 83880; 84132; 84295; 84484; 85025; 85379; 87040; 93005; 94644; 96374; J2930; J7611; J7620

== ENCOUNTER 2018-04-18 10:43 | Emergency (ER) | payer MEDICARE, BC ==
[2018-04-18 11:08] LABS: #Basophils 0.1 thou/uL (0.0-0.2); #Lymphocytes 1.2 thou/uL (1.20-3.40); #Monocytes 0.5 thou/uL (0.11-0.59); #Neutrophils 4.5 thou/uL (1.40-6.50); %Basophils 1.1 % (0.0-1.0); %Eosinophils 0.5 % (0.0-10.0); %Lymphocytes 18.9 % (21.0-51.0); %Monocytes 7.7 % (0.0-10.0); %Neutrophils 71.8 % (42.0-75.0); Hemoglobin 14.5 g/dL (12.0-16.0); Mean Corpuscular HGB CONC 32.4 g/dL (32.0-36.0); Mean Corpuscular Hemoglobin 29.1 pg (27.0-31.0); Mean Corpuscular Volume 89.9 fL (78.0-98.0); Mean Platelet Volume 8.2 fL (7.4-10.4); Platelet Count 215 thou/uL (130-400); RBC Distribution Width 13.9 % (11.5-14.5); Red Blood Cell (RBC) Count 4.97 mill/uL (4.20-5.40); White Blood Cell (WBC) Count 6.2 thou/uL (4.8-10.8)
[2018-04-18 11:25] LABS: ALT (SGPT) 25 U/L (8-55); AST (SGOT) 30 U/L (5-34); Albumin 4.6 g/dL (3.5-5.0); Alkaline Phosphatase 119 U/L (40-150); Anion Gap 16 mmol/L (10-20); BUN (Urea Nitrogen) 9 mg/dL (9.8-20.1); Bilirubin, Total 0.6 mg/dL (0.2-1.2); Calc. Creatinine Clearance 0 mL/min (70-130); Calcium 10.1 mg/dL (7.8-10.44); Carbon Dioxide 20 mmol/L (22-29); Chloride 106 mmol/L (98-107); Estimated GFR-MDRD 60; Globulin 3.5 g/dL (2.4-3.5); Glucose 93 mg/dL (70-105); Potassium 4.1 mmol/L (3.5-5.1); Protein, Total 8.1 g/dL (6.0-8.3); Sodium 138 mmol/L (136-145)
[2018-04-18 12:12] LABS: Bilirubin Negative (Negative); Blood, Urine Negative (Negative); Clarity CLEAR (Clear); Glucose, Urine (Dipstick) Negative (Negative); Leukocyte Negative (Negative); Nitrite Negative (Negative); Protein, Urine (Dipstick) Negative (Neg-Trace); Specific Gravity, Urine 1.025 (1.002-1.036); Urobilinogen 0.2 mg/dL (0.2-1.0)
[2018-04-18] MEDS ORDERED: Albuterol Sulfate 2.5 mg/3 ml Neb ONE ×2 (12:50→12:57)
--- NOTE | 2018-04-18 12:57 | RAD ---
PORTABLE AP CHEST: Date: 04/18/18 HISTORY: Shortness of breath with fever, cough, and chest pain. COMPARISON: 11/01/17. FINDINGS: Cardiac silhouette magnified by projection. Pulmonary vasculature is within normal limits. The lungs are clear. There has been no significant interval change from the prior exam. IMPRESSION: No acute cardiopulmonary process. POS: [facility]
== END 2018-04-18 14:15 | disposition home or self-care (01) ==
LOC: ERS 10:43
DX: J20.9 Acute bronchitis, unspecified (principal); I50.9 Heart failure, unspecified; M06.9 Rheumatoid arthritis, unspecified; K21.9 Gastro-esophageal reflux disease without esophagitis; J45.909 Unspecified asthma, uncomplicated; G47.31 Primary central sleep apnea
CPT/HCPCS: 71045; 80053; 81003; 83605; 84484; 85025; 87040; 87804; 93005; 94640; J7611

== ENCOUNTER 2018-08-31 21:06 | Emergency (ER) | payer MEDICARE, BC ==
[2018-08-31] MEDS ORDERED: Ondansetron PF 4 MG/2 ML Vial ONE ×2 (21:28→23:10)
--- NOTE | 2018-08-31 21:41 | RAD ---
EXAM: Single view of the chest HISTORY: Shortness of breath and vomiting COMPARISON: 04/18/2018 FINDINGS: Single view of the chest shows a normal sized cardiomediastinal silhouette. There is no beatriz dence of consolidation, mass, or pleural effusion. The bones are unremarkable. IMPRESSION: No evidence of acute cardiopulmonary disease
[2018-08-31 22:02] LABS: #Eosinphils 0.1 thou/uL (0.0-0.7); #Lymphocytes 1.5 thou/uL (1.20-3.40); #Monocytes 0.7 thou/uL (0.11-0.59); #Neutrophils 9.3 thou/uL (1.40-6.50); %Eosinophils 0.5 % (0.0-10.0); %Lymphocytes 13.2 % (21.0-51.0); %Monocytes 6.3 % (0.0-10.0); Hemoglobin 14.5 g/dL (12.0-16.0); Mean Corpuscular HGB CONC 32.7 g/dL (32.0-36.0); Mean Corpuscular Hemoglobin 28.9 pg (27.0-31.0); Mean Corpuscular Volume 88.3 fL (78.0-98.0); Mean Platelet Volume 8.5 fL (7.4-10.4); Platelet Count 266 thou/uL (130-400); RBC Distribution Width 13.9 % (11.5-14.5); Red Blood Cell (RBC) Count 5.03 mill/uL (4.20-5.40); White Blood Cell (WBC) Count 11.7 thou/uL (4.8-10.8)
[2018-08-31 22:26] LABS: ALT (SGPT) 21 U/L (8-55); AST (SGOT) 24 U/L (5-34); Albumin 4.7 g/dL (3.5-5.0); Alkaline Phosphatase 133 U/L (40-150); Anion Gap 17 mmol/L (10-20); BUN (Urea Nitrogen) 18 mg/dL (9.8-20.1); Bilirubin, Total 0.6 mg/dL (0.2-1.2); Calc. Creatinine Clearance 0 mL/min (70-130); Calcium 10.1 mg/dL (7.8-10.44); Carbon Dioxide 21 mmol/L (22-29); Chloride 106 mmol/L (98-107); Estimated GFR-MDRD 57; Globulin 3.5 g/dL (2.4-3.5); Glucose 122 mg/dL (70-105); Potassium 3.8 mmol/L (3.5-5.1); Protein, Total 8.2 g/dL (6.0-8.3); Sodium 140 mmol/L (136-145)
[2018-08-31] MEDS ORDERED: Haloperidol Lactate 5 MG/ML VIAL ONE (23:45)
[2018-09-01] MEDS ORDERED: Ondansetron PF 4 MG/2 ML Vial ONE (00:21)
[2018-09-01] MEDS ORDERED: Metoclopramide HCl 10 MG/2 ML VIAL ONE (02:38)
--- NOTE | 2018-09-01 09:10 | ULT ---
PRELIMINARY REPORT/[facility]/EMERGENCY AFTER HOURS PROCEDURE: EXAM: US Abdomen Limited, Right Upper Quadrant EXAM DATE/TIME: 09/01/2018 1:38 AM CLINICAL HISTORY: 58 years old, female; Nausea and vomiting; Abdominal pain; Generalized; Patient HX: Abd pain x 1 day, bloating, n/v TECHNIQUE: Imaging protocol: Real-time ultrasound of the abdomen with image documentation. Examination was focus ed on the right upper quadrant. COMPARISON: No relevant prior studies available. FINDINGS: Liver: Slight increased echogenicity of the liver may indicate fatty infiltration. Otherwise unremark able liver, no focal abnormality. Gallbladder: The gallbladder appears borderline to mildly distended, transverse diameter around 4 cm. No cholelithiasis. No gallbladder wall thickening or pericholecystic fluid. Common bile duct: Mild extra hepatic biliary tree prominence, with common duct measuring up to 5.7 mm . No visible common duct stone by ultrasound. Significance uncertain. Correlation with laboratory/bilirubin levels may be helpful to determine if t here is any significant biliary obstruction. Pancreas: Visible pancreas unremarkable. Some of the pancreas is obscured by bowel gas. Right kidney: Images of the right kidney show no hydronephrosis. IMPRESSION: 1. Borderline to mildly distended gallbladder. 2. No visible gallstones or other definite gallbladder abnormality by CT. 3. Mild extra hepatic biliary tree prominence, see above discussion. 4. Other findings discussed above. Thank you for allowing us to participate in the care of your patient. Dictated and Authenticated by: Ferny Andersen MD 09/01/2018 2:22 AM Central Time ([place] & [place]) FINAL REPORT RIGHT UPPER QUADRANT ULTRASOUND: EMERGENT AFTER HOURS EXAM TIME: 1:46 a.m. DATE: 09/01/2018. Borderline distended gallbladder without evidence of gallstones or wall thickening or pericholecystic fluid. Upper range of normal common duct at 0.6 cm. No other acute process. This report is in agreement with a preliminary report. POS: [facility]
== END 2018-09-01 03:43 | disposition home or self-care (01) ==
LOC: ERS 21:06
DX: R11.2 Nausea with vomiting, unspecified (principal); K21.9 Gastro-esophageal reflux disease without esophagitis; M81.0 Age-related osteoporosis without current pathological fracture; Z79.899 Other long term (current) drug therapy; Z79.82 Long term (current) use of aspirin
CPT/HCPCS: 71045; 76705; 80053; 83880; 84484; 85025; 93005; 96374; 96376; J1630; J2405; J2765

== ENCOUNTER 2018-09-09 12:04 | Outpatient (CLI) | payer MEDICARE, BC ==
[~2018-09-09 12:04] MED LIST changes: -ISOVUE-370 76%-LOCM 1 ML ONE; +Iopamidol 370 76% 100 ML VIAL ONE
--- NOTE | 2018-09-09 14:03 | CT ---
CT CHEST WITH CONTRAST: 09/09/18 Multiple axial tomograms obtained through the chest with IV enhancement. INDICATIONS: Respiratory failure given its reason for exam. Restrictive lung disease. Shortness of breath. FINDINGS: The lungs remain well aerated and clear. There is mild interstitial thickening in the periphery of t he lungs slightly more prominent in the posterior lung bases. This is a stable finding; however, when compared to exam dating back to 2007. No evidence of interstitial fibrosis. There is no mass, infil trate, or effusion. Some mild atelectasis along the fissure peripherally in the left mid lung extending to the pleural acevedo rface. This is stable from the chest CT of 11/01/17. Mediastinum unremarkable. No adenopathy. Thoracic aorta is unremarkable with no dissection or aneurysm. Proximal pulmonary arteries are opacified and there is no evidence of proximal pulmonary embolus involving either main pulmonary artery. Images through upper abdomen unremarkable. Osseous structures unremarkable. IMPRESSION: Mild chronic parenchymal changes with mild interstitial thickening in the periphery of both lungs and in the posterior lung bases; however, this is a stable finding. No evidence of pulmonary fibrosis or other acute process. POS: [facility]
== END 2018-09-09 12:05 | disposition home or self-care (01) ==
LOC: CT 12:04
PROVIDERS: ATTEND Specialist
DX: R09.89 Other specified symptoms and signs involving the circulatory and respiratory systems (principal); J96.90 Respiratory failure, unspecified, unspecified whether with hypoxia or hypercapnia; J98.4 Other disorders of lung; J84.9 Interstitial pulmonary disease, unspecified
CPT/HCPCS: 71260; Q9967

== ENCOUNTER 2018-09-11 12:03 | Outpatient (CLI) | payer MEDICARE, BC ==
--- NOTE | 2018-09-11 18:09 | NM ---
EXAM: NUCLEAR MEDICINE HEPATOBILIARY SCAN WITH EJECTION FRACTION: 09/11/18 HISTORY: Acute cholecystitis with chronic cholecystitis. Patient was injected with 5.3 millicuries of technetium 99m Mebrofenin intravenously. There is prompt uptake of the tracer by the liver with rapid excretion near the biliary tree and filling of the gall bladder and emptying into the bowel. At the 60 minute time interval, the patient was given 8 oz of E nsure orally in place of CCK. Gallbladder ejection fraction equals 60%. IMPRESSION: Normal nuclear medicine hepatobiliary scan and ejection fraction. POS: [facility]
== END 2018-09-11 12:04 | disposition home or self-care (01) ==
LOC: NM 12:03
PROVIDERS: ATTEND Specialist
DX: K81.2 Acute cholecystitis with chronic cholecystitis (principal)
CPT/HCPCS: 78227; A9537

== ENCOUNTER 2018-10-14 06:56 | Day surgery (SDC) | payer MEDICARE, BC ==
[2018-10-13 10:18] VITALS: BMI 38.6
--- NOTE | 2018-10-14 11:28 | OP ---
DATE OF PROCEDURE: 10/14/2018 PROCEDURE PERFORMED: Colonoscopy with snare polypectomy. PREMEDICATION: Given by Anesthesiology Department. PREPROCEDURE DIAGNOSIS: Family history of colon cancer. POSTPROCEDURE DIAGNOSIS: Sigmoid colon polyp, status post polypectomy. DESCRIPTION OF PROCEDURE: Written consents were obtained prior to procedure. After adequate sedation, rectal exam performed was normal. The endoscope was advanced to the cecum. The quality of the bowel prep was adequate. The ileocecal valve and appendiceal orifice were visualized and appeared normal. The cecum, ascending colon, hepatic flexure, transverse colon, splenic flexure, and descending colon appeared normal. A small 4-mm sessile polyp was noted in the sigmoid colon and was removed with cold snare and retrieved. The rectosigmoid and rectal vault appeared normal including retroflexion. The patient tolerated the procedure well. ASSESSMENT: 1. Small sigmoid polyp, status post polypectomy. 2. Otherwise, normal colon exam. RECOMMENDATION: Await biopsy results. Job ID: [id number]
== END 2018-10-14 10:50 | disposition home or self-care (01) ==
LOC: SDC 06:56
PROVIDERS: ATTEND Internal Medicine Gastroenterology
PROC: 0DBN8ZX Excision of Sigmoid Colon, Via Natural or Artificial Opening Endoscopic, Diagnostic (ICD-10-PCS; principal; 2018-10-14)
DX: Z12.11 Encounter for screening for malignant neoplasm of colon (principal); K63.5 Polyp of colon; K59.00 Constipation, unspecified; Z80.0 Family history of malignant neoplasm of digestive organs; Z79.51 Long term (current) use of inhaled steroids; Z79.52 Long term (current) use of systemic steroids; Z79.82 Long term (current) use of aspirin; Z79.899 Other long term (current) drug therapy; Z88.1 Allergy status to other antibiotic agents; Z88.2 Allergy status to sulfonamides; Z88.5 Allergy status to narcotic agent; Z88.8 Allergy status to other drugs, medicaments and biological substances
CPT/HCPCS: 88305; J7620

== ENCOUNTER 2018-11-03 06:03 | Emergency (ER) | payer MEDICARE, BC ==
[2018-11-03 06:53] LABS: #Basophils 0.1 thou/uL (0.0-0.2); #Eosinphils 0.1 thou/uL (0.0-0.7); #Lymphocytes 2.2 thou/uL (1.20-3.40); #Monocytes 0.4 thou/uL (0.11-0.59); %Basophils 1.1 % (0.0-1.0); %Eosinophils 1.8 % (0.0-10.0); %Lymphocytes 38.6 % (21.0-51.0); %Monocytes 6.5 % (0.0-10.0); Mean Corpuscular HGB CONC 33.7 g/dL (32.0-36.0); Mean Corpuscular Hemoglobin 29.9 pg (27.0-31.0); Mean Corpuscular Volume 88.5 fL (78.0-98.0); Mean Platelet Volume 7.9 fL (7.4-10.4); Platelet Count 222 thou/uL (130-400); RBC Distribution Width 13.7 % (11.5-14.5); Red Blood Cell (RBC) Count 4.67 mill/uL (4.20-5.40); White Blood Cell (WBC) Count 5.7 thou/uL (4.8-10.8)
[2018-11-03 07:11] LABS: ALT (SGPT) 18 U/L (8-55); AST (SGOT) 20 U/L (5-34); Albumin 4.1 g/dL (3.5-5.0); Alkaline Phosphatase 123 U/L (40-150); Anion Gap 10 mmol/L (10-20); BUN (Urea Nitrogen) 13 mg/dL (9.8-20.1); Bilirubin, Total 0.5 mg/dL (0.2-1.2); Calc. Creatinine Clearance 0 mL/min (70-130); Calcium 9.5 mg/dL (7.8-10.44); Carbon Dioxide 25 mmol/L (22-29); Chloride 108 mmol/L (98-107); Estimated GFR-MDRD 72; Glucose 96 mg/dL (70-105); Magnesium 2.1 mg/dL (1.6-2.6); Potassium 3.7 mmol/L (3.5-5.1); Protein, Total 7.1 g/dL (6.0-8.3); Sodium 139 mmol/L (136-145)
[2018-11-03] MEDS ORDERED: methylPREDNISolone Sod Succ/PF 125 MG/2 ML VIAL ONE (07:26)
[2018-11-03] MEDS ORDERED: Magnesium 2 GM/50 ML BAG (IN WATER) ONE (07:27)
[2018-11-03] MEDS ORDERED: Sodium Chloride For Inhalation 0.9% 3 ML NEB ONE (08:27)
[2018-11-03] MEDS ORDERED: Albuterol Sulfate 2.5 mg/0.5 ml Neb ONE (08:27)
[2018-11-03] MEDS ORDERED: Azithromycin 250 MG TAB ONE (09:08)
--- NOTE | 2018-11-03 09:54 | RAD ---
PORTABLE CHEST: HISTORY: Shortness of breath. COMPARISON: 08/31/2018 FINDINGS: Heart size and mediastinum are within normal limits. Lungs are clear of infiltrates. There are no s ignificant bony findings. IMPRESSION: No active intrathoracic disease. POS: [facility]
== END 2018-11-03 09:27 | disposition home or self-care (01) ==
LOC: ERS 06:03
DX: J44.1 Chronic obstructive pulmonary disease with (acute) exacerbation (principal); I50.9 Heart failure, unspecified; M06.9 Rheumatoid arthritis, unspecified; K21.9 Gastro-esophageal reflux disease without esophagitis; G47.37 Central sleep apnea in conditions classified elsewhere; J45.909 Unspecified asthma, uncomplicated; Z79.899 Other long term (current) drug therapy; Z79.82 Long term (current) use of aspirin
CPT/HCPCS: 36415; 71045; 80053; 83735; 84484; 85025; 85379; 93005; 94640; 94644; 96365; 96375; J2930; J3475; J7611; J7620

== ENCOUNTER 2019-03-09 15:04 | Emergency (ER) | payer MEDICARE, BC ==
[2019-03-09 15:32] LABS: #Basophils 0.1 thou/uL (0.0-0.2); #Eosinphils 0.1 thou/uL (0.0-0.7); #Lymphocytes 2.1 thou/uL (1.20-3.40); #Monocytes 0.6 thou/uL (0.11-0.59); #Neutrophils 4.2 thou/uL (1.40-6.50); %Basophils 0.9 % (0.0-1.0); %Eosinophils 1.4 % (0.0-10.0); %Lymphocytes 29.9 % (21.0-51.0); %Monocytes 7.9 % (0.0-10.0); %Neutrophils 59.9 % (42.0-75.0); Hemoglobin 14.3 g/dL (12.0-16.0); Mean Corpuscular HGB CONC 33.1 g/dL (32.0-36.0); Mean Corpuscular Hemoglobin 29.4 pg (27.0-31.0); Mean Corpuscular Volume 88.9 fL (78.0-98.0); Mean Platelet Volume 8.3 fL (7.4-10.4); Platelet Count 250 thou/uL (130-400); RBC Distribution Width 13.8 % (11.5-14.5); Red Blood Cell (RBC) Count 4.86 mill/uL (4.20-5.40)
--- NOTE | 2019-03-09 15:47 | RAD ---
PA AND LATERAL VIEWS CHEST: 03/09/19 HISTORY: Dyspnea, cough. FINDINGS: Comparison made with exam of 11/03/18. The heart size is normal. No focal areas of consolidation, pneumothoraces, or pleural effusions are s een. No acute osseous abnormalities are seen. IMPRESSION: No acute process. POS: [facility]
[2019-03-09 15:52] LABS: ALT (SGPT) 18 U/L (8-55); AST (SGOT) 22 U/L (5-34); Albumin 4.4 g/dL (3.5-5.0); Alkaline Phosphatase 117 U/L (40-110); Anion Gap 13 mmol/L (10-20); BUN (Urea Nitrogen) 11 mg/dL (9.8-20.1); Bilirubin, Total 0.4 mg/dL (0.2-1.2); CK (CPK) 118 U/L (29-168); Calc. Creatinine Clearance 0 mL/min (70-130); Calcium 9.6 mg/dL (7.8-10.44); Carbon Dioxide 22 mmol/L (22-29); Chloride 112 mmol/L (98-107); Estimated GFR-MDRD 63; Globulin 3.4 g/dL (2.4-3.5); Glucose 98 mg/dL (70-105); Potassium 4.1 mmol/L (3.5-5.1); Protein, Total 7.8 g/dL (6.0-8.3); Sodium 143 mmol/L (136-145)
[2019-03-09] MEDS ORDERED: Cefepime 2 GM VIAL ONE (16:08)
[2019-03-09] MEDS ORDERED: Iopamidol-370 76% 500 ML 1 ML ONE (16:19)
--- NOTE | 2019-03-09 16:39 | CT ---
CT arteriogram chest with IV contrast and 3-D imaging HISTORY: Dyspnea. Chest pain. FINDINGS: There is good contrast opacification of the pulmonary arteries and thoracic aorta with norm al origin of great vessels at the aortic arch. No lobar consolidation, no pleural fluid, pneumothorax, or mediastinal adenopathy. IMPRESSION: Normal exam.
[2019-03-09] MEDS ORDERED: Meropenem 1 GM in Sodium Chloride 0.9% 100 ML IVPB SCH (16:45)
== END 2019-03-09 20:12 | disposition home or self-care (01) ==
LOC: ERS 15:04
DX: J06.9 Acute upper respiratory infection, unspecified (principal); I34.1 Nonrheumatic mitral (valve) prolapse; M91.0 Juvenile osteochondrosis of pelvis; K21.9 Gastro-esophageal reflux disease without esophagitis; I50.9 Heart failure, unspecified; Z79.899 Other long term (current) drug therapy
CPT/HCPCS: 36415; 71046; 71275; 80053; 82550; 83605; 83880; 84484; 85025; 87040; 87804; 93005; 94640; 96361; 96365; 96366; J0692; J2185; J3370; J3490; J7050; J7620; Q9967

== ENCOUNTER 2020-07-26 12:50 | Outpatient (CLI) | payer MEDICARE, BC | END 2020-07-26 12:51 | disposition home or self-care (01) | LOC: CT 12:50 | PROVIDERS: ATTEND Internal Medicine Critical Care Medicine | DX: M81.0 Age-related osteoporosis without current pathological fracture (principal); J96.11 Chronic respiratory failure with hypoxia; M16.0 Bilateral primary osteoarthritis of hip; M25.852 Other specified joint disorders, left hip; M25.851 Other specified joint disorders, right hip | CPT/HCPCS: 71250; 73521 ==

== ENCOUNTER 2020-07-28 12:22 | Outpatient (CLI) | payer MEDICARE, BC | END 2020-07-28 12:23 | disposition home or self-care (01) | LOC: BICMAMMO 12:22 | PROVIDERS: ATTEND Specialist | DX: Z12.31 Encounter for screening mammogram for malignant neoplasm of breast (principal); J96.11 Chronic respiratory failure with hypoxia | CPT/HCPCS: 77063; 77067 ==

== ENCOUNTER 2020-08-02 13:14 | Outpatient (CLI) | payer MEDICARE, BC | END 2020-08-02 13:15 | disposition home or self-care (01) | LOC: BICMAMMO 13:14 | PROVIDERS: ATTEND Specialist | DX: M81.0 Age-related osteoporosis without current pathological fracture (principal); M85.89 Other specified disorders of bone density and structure, multiple sites | CPT/HCPCS: 77080 ==

== ENCOUNTER 2021-02-13 19:35 | Emergency (ER) | payer MEDICARE, BC ==
[2021-02-13 21:43] LABS: #Eosinphils 0.1 thou/uL (0.0-0.7); #Lymphocytes 2.6 thou/uL (1.20-3.40); #Monocytes 0.5 thou/uL (0.11-0.59); %Basophils 0.6 % (0.0-1.0); %Eosinophils 1.6 % (0.0-10.0); %Lymphocytes 35.5 % (21.0-51.0); %Monocytes 6.8 % (0.0-10.0); %Neutrophils 55.5 % (42.0-75.0); Hemoglobin 14.8 g/dL (12.0-16.0); Mean Corpuscular HGB CONC 32.8 g/dL (32.0-36.0); Mean Corpuscular Hemoglobin 29.2 pg (27.0-31.0); Mean Corpuscular Volume 89.1 fL (78.0-98.0); Mean Platelet Volume 7.9 fL (7.4-10.4); Platelet Count 235 thou/uL (130-400); RBC Distribution Width 13.6 % (11.5-14.5); Red Blood Cell (RBC) Count 5.06 mill/uL (4.20-5.40); White Blood Cell (WBC) Count 7.3 thou/uL (4.8-10.8)
[2021-02-13 22:06] LABS: ALT (SGPT) 20 U/L (8-55); AST (SGOT) 27 U/L (5-34); Albumin 4.4 g/dL (3.5-5.0); Alkaline Phosphatase 98 U/L (40-110); Anion Gap 14 mmol/L (10-20); BUN (Urea Nitrogen) 15 mg/dL (9.8-20.1); Bilirubin, Total 0.4 mg/dL (0.2-1.2); Calc. Creatinine Clearance 0 mL/min (70-130); Calcium 9.4 mg/dL (7.8-10.44); Carbon Dioxide 23 mmol/L (22-29); Chloride 107 mmol/L (98-107); Globulin 3.3 g/dL (2.4-3.5); Glucose 91 mg/dL (70-105); Potassium 4.2 mmol/L (3.5-5.1); Protein, Total 7.7 g/dL (6.0-8.3); Sodium 140 mmol/L (136-145)
== END 2021-02-13 23:10 | disposition home or self-care (01) ==
LOC: ERS 19:35
DX: G62.9 Polyneuropathy, unspecified (principal); I50.9 Heart failure, unspecified; K21.9 Gastro-esophageal reflux disease without esophagitis; J45.909 Unspecified asthma, uncomplicated; M06.9 Rheumatoid arthritis, unspecified; M32.9 Systemic lupus erythematosus, unspecified; M81.0 Age-related osteoporosis without current pathological fracture; N83.209 Unspecified ovarian cyst, unspecified side; G47.30 Sleep apnea, unspecified; G89.4 Chronic pain syndrome
CPT/HCPCS: 36415; 71045; 80053; 84484; 85025; 85379

== ENCOUNTER 2021-04-19 11:31 | Outpatient (CLI) | payer MEDICARE, BC | END 2021-04-19 11:32 | disposition home or self-care (01) | LOC: BICRAD 11:31 | PROVIDERS: ATTEND Specialist | DX: M19.041 Primary osteoarthritis, right hand (principal); R06.00 Dyspnea, unspecified | CPT/HCPCS: 71046 ==

== ENCOUNTER 2021-08-07 07:48 | Outpatient (CLI) | payer MEDICARE, BC | END 2021-08-07 07:49 | disposition home or self-care (01) | LOC: BICMAMMO 07:48 | PROVIDERS: ATTEND Specialist | DX: Z12.31 Encounter for screening mammogram for malignant neoplasm of breast (principal); M81.0 Age-related osteoporosis without current pathological fracture; Z91.89 Other specified personal risk factors, not elsewhere classified | CPT/HCPCS: 77063; 77067; 77080 ==

== ENCOUNTER 2021-10-03 20:23 | Emergency (ER) | payer MEDICARE, BC ==
[2021-10-03 20:59] LABS: #Basophils 0.1 thou/uL (0.0-0.2); #Eosinphils 0.1 thou/uL (0.0-0.7); #Lymphocytes 2.8 thou/uL (1.20-3.40); #Monocytes 0.6 thou/uL (0.11-0.59); #Neutrophils 3.8 thou/uL (1.40-6.50); %Basophils 0.9 % (0.0-1.0); %Eosinophils 1.5 % (0.0-10.0); %Lymphocytes 38.3 % (21.0-51.0); %Monocytes 8.3 % (0.0-10.0); Hemoglobin 14.1 g/dL (12.0-16.0); Mean Corpuscular HGB CONC 32.6 g/dL (32.0-36.0); Mean Corpuscular Hemoglobin 29.6 pg (27.0-31.0); Mean Corpuscular Volume 90.8 fL (78.0-98.0); Mean Platelet Volume 8.1 fL (7.4-10.4); Platelet Count 230 thou/uL (130-400); RBC Distribution Width 13.5 % (11.5-14.5); Red Blood Cell (RBC) Count 4.75 mill/uL (4.20-5.40); White Blood Cell (WBC) Count 7.4 thou/uL (4.8-10.8)
[2021-10-03] MEDS ORDERED: methylPREDNISolone Sod Succ/PF 125 MG/2 ML VIAL ONE (21:00)
[2021-10-03] MEDS ORDERED: Magnesium 2 GM/50 ML BAG (IN WATER) ONE (21:00)
[2021-10-03 21:19] LABS: ALT (SGPT) 19 U/L (8-55); AST (SGOT) 25 U/L (5-34); Albumin 4.3 g/dL (3.4-4.8); Alkaline Phosphatase 86 U/L (40-110); Anion Gap 14 mmol/L (10-20); BUN (Urea Nitrogen) 14 mg/dL (9.8-20.1); Bilirubin, Total 0.4 mg/dL (0.2-1.2); Calc. Creatinine Clearance 0 mL/min (70-130); Calcium 9.4 mg/dL (7.8-10.44); Carbon Dioxide 23 mmol/L (23-31); Chloride 110 mmol/L (98-107); Estimated GFR 57; Globulin 3.4 g/dL (2.4-3.5); Glucose 88 mg/dL (80-115); Protein, Total 7.7 g/dL (5.8-8.1); Sodium 143 mmol/L (136-145)
== END 2021-10-03 23:48 | disposition home or self-care (01) ==
LOC: ERS 20:23
DX: J45.901 Unspecified asthma with (acute) exacerbation (principal); I50.9 Heart failure, unspecified; K21.9 Gastro-esophageal reflux disease without esophagitis
CPT/HCPCS: 36415; 71045; 80053; 82550; 83880; 84484; 85025; 93005; 96365; 96375; J2930; J3475; J7620

== ENCOUNTER 2022-05-28 13:21 | Outpatient (CLI) | payer MEDICARE, BC | END 2022-05-28 13:22 | disposition home or self-care (01) | LOC: BICRAD 13:21 | PROVIDERS: ATTEND Anesthesiology Pain Medicine | DX: M87.111 Osteonecrosis due to drugs, right shoulder (principal); M19.011 Primary osteoarthritis, right shoulder; M25.811 Other specified joint disorders, right shoulder ==

== ENCOUNTER 2022-12-12 06:04 | Day surgery (SDC) | payer MEDICARE, BC ==
[2022-12-11 11:12] VITALS: BMI 37.4
[2022-12-12] MEDS ORDERED: PROPOFOL 200 MG/20 ML VIAL ONE (08:31)
[2022-12-12] MEDS ORDERED: Lidocaine 1% PF 5 ML VIAL ONE (08:31)
== END 2022-12-12 09:55 | disposition home or self-care (01) ==
LOC: SDC 06:04
PROVIDERS: ATTEND Internal Medicine Gastroenterology
PROC: 0DBK8ZZ Excision of Ascending Colon, Via Natural or Artificial Opening Endoscopic (ICD-10-PCS; principal; 2022-12-12)
PROC: 0DBN8ZZ Excision of Sigmoid Colon, Via Natural or Artificial Opening Endoscopic (ICD-10-PCS; 2022-12-12)
DX: Z12.11 Encounter for screening for malignant neoplasm of colon (principal); D12.2 Benign neoplasm of ascending colon; K63.5 Polyp of colon; G47.30 Sleep apnea, unspecified; K21.9 Gastro-esophageal reflux disease without esophagitis; Z86.010 Personal history of colon polyps; Z80.0 Family history of malignant neoplasm of digestive organs; Z88.8 Allergy status to other drugs, medicaments and biological substances; Z88.1 Allergy status to other antibiotic agents; Z98.890 Other specified postprocedural states; Z88.5 Allergy status to narcotic agent; Z88.4 Allergy status to anesthetic agent; Z88.2 Allergy status to sulfonamides; Z88.6 Allergy status to analgesic agent; Z79.899 Other long term (current) drug therapy
CPT/HCPCS: 88305; J2704

== ENCOUNTER 2023-01-08 12:53 | Outpatient (CLI) | payer MEDICARE, BC | END 2023-01-08 12:54 | disposition home or self-care (01) | LOC: BICMRI 12:53 | PROVIDERS: ATTEND Anesthesiology Pain Medicine | DX: M75.111 Incomplete rotator cuff tear or rupture of right shoulder, not specified as traumatic (principal); M67.911 Unspecified disorder of synovium and tendon, right shoulder ==

== ENCOUNTER 2023-08-14 10:29 | Outpatient (CLI) | payer MEDICARE | END 2023-08-14 10:30 | disposition home or self-care (01) | LOC: BICCT 10:29 | PROVIDERS: ATTEND Specialist | DX: R91.1 Solitary pulmonary nodule (principal) | CPT/HCPCS: 71250 ==

== ENCOUNTER 2023-09-03 12:13 | Outpatient (CLI) | payer MEDICARE | END 2023-09-03 12:14 | disposition home or self-care (01) | LOC: BICMAMMO 12:13 | PROVIDERS: ATTEND Specialist | DX: Z12.31 Encounter for screening mammogram for malignant neoplasm of breast (principal); Z91.89 Other specified personal risk factors, not elsewhere classified | CPT/HCPCS: 77063; 77067 ==

== ENCOUNTER 2024-12-28 12:44 | Outpatient (CLI) | payer MEDICARE ==
[2024-12-28 13:16] LABS: Estimated GFR - POC 82.0
== END 2024-12-28 12:45 | disposition home or self-care (01) ==
LOC: CT 12:44
PROVIDERS: ATTEND Specialist
DX: J96.90 Respiratory failure, unspecified, unspecified whether with hypoxia or hypercapnia (principal)
CPT/HCPCS: 36415; 71260; 82565; Q9967